=== PATIENT | male | born 1960 | race Caucasian/White ===

== ENCOUNTER 2018-05-12 14:24 | Emergency (ER) | payer OTHER ==
[2018-05-12 15:25] LABS: #Basophils 0.1 thou/uL (0.0-0.2); #Eosinphils 0.1 thou/uL (0.0-0.7); #Lymphocytes 2.4 thou/uL (1.20-3.40); #Monocytes 0.5 thou/uL (0.11-0.59); %Basophils 1.2 % (0.0-1.0); %Eosinophils 2.1 % (0.0-10.0); %Lymphocytes 39.3 % (21.0-51.0); %Monocytes 8.3 % (0.0-10.0); %Neutrophils 49.2 % (42.0-75.0); Hemoglobin 14.2 g/dL (14.0-18.0); Mean Corpuscular HGB CONC 34.1 g/dL (32.0-36.0); Mean Corpuscular Hemoglobin 29.9 pg (27.0-31.0); Mean Corpuscular Volume 87.5 fL (78.0-98.0); Mean Platelet Volume 7.5 fL (7.4-10.4); Platelet Count 213 thou/uL (130-400); RBC Distribution Width 11.1 % (11.5-14.5); Red Blood Cell (RBC) Count 4.76 mill/uL (4.70-6.10)
--- NOTE | 2018-05-12 15:28 | RAD ---
CHEST PA AND LATERAL TWO VIEWS: History: 57-year-old male with history of abnormal breath sounds, lightheadedness for one week. Comparison: 11-16-12 FINDINGS: Heart size is within normal limits. The lungs are clear. No pneumonia, edema, or pleural effusion. IMPRESSION: No acute intrathoracic disease. POS: [facility]
[2018-05-12 15:38] LABS: ALT (SGPT) 38 U/L (8-55); AST (SGOT) 31 U/L (5-34); Albumin 4.4 g/dL (3.5-5.0); Alkaline Phosphatase 55 U/L (40-150); Anion Gap 13 mmol/L (10-20); BUN (Urea Nitrogen) 22 mg/dL (8.4-25.7); Bilirubin, Total 0.5 mg/dL (0.2-1.2); Calc. Creatinine Clearance 0 mL/min (70-130); Calcium 9.8 mg/dL (7.8-10.44); Carbon Dioxide 27 mmol/L (22-29); Chloride 103 mmol/L (98-107); Estimated GFR-MDRD 86; Globulin 3.7 g/dL (2.4-3.5); Glucose 93 mg/dL (70-105); Potassium 4.2 mmol/L (3.5-5.1); Protein, Total 8.1 g/dL (6.0-8.3); Sodium 139 mmol/L (136-145)
[2018-05-12 15:40] LABS: CKMB 1.2 ng/mL (0-6.6); Troponin I Less than 0.010 ng/mL (< 0.028)
== END 2018-05-12 15:56 | disposition home or self-care (01) ==
LOC: SCSER 14:24
DX: R42 Dizziness and giddiness (principal)
CPT/HCPCS: 71046; 80053; 82553; 84484; 85025; 93005

== ENCOUNTER 2021-06-27 21:33 | Inpatient (IN) | payer OTHER ==
[2021-06-27] MEDS ORDERED: Bupivacaine PF 0.5% 30 ML VIAL ONE (22:01)
[2021-06-27] MEDS ORDERED: Neomycin-Polymyxin 1 ML AMP ONE ×2 (22:01→22:07)
[2021-06-27] MEDS ORDERED: Bacitracin Zinc Ointment 30 gm TUBE ONE (22:01)
[2021-06-27] MEDS ORDERED: Thrombin 5000 UNITS/5 ML VIAL ONE (22:07)
[2021-06-27] MEDS ORDERED: Betamet Acet/Betamet Na Ph 30 MG/5 ML VIAL ONE (22:08)
[2021-06-27] MEDS ORDERED: Milk Of Magnesia 30 ML UDCUP PO PRN (23:10)
[2021-06-27] MEDS ORDERED: Acetaminophen 325 MG TAB PO PRN (23:10)
[2021-06-27] MEDS ORDERED: Ondansetron PF 4 MG/2 ML Vial SLOW IVP PRN (23:10)
[2021-06-27] MEDS ORDERED: traMADol HCl 50 MG TAB PO PRN (23:10)
[2021-06-27] MEDS ORDERED: Fentanyl 100 MCG/2 ML VIAL SLOW IVP PRN (23:10)
[2021-06-27] MEDS ORDERED: Promethazine HCl 25 MG/ML VIAL IM PRN (23:10)
[2021-06-27] MEDS ORDERED: HYDROcodone/Acetaminophen 5/325 mg Tablet PO PRN (23:10)
[2021-06-27] MEDS ORDERED: Bisacodyl 10 MG SUPP PR PRN (23:10)
[2021-06-27] MEDS ORDERED: Morphine 4 MG/ML VIAL SLOW IVP PRN (23:10)
[2021-06-27] MEDS ORDERED: Communication Order-Pharmacy FS PRN (23:15)
[2021-06-27] MEDS ORDERED: TETANUS AND DIPHTHERIA TOX/PF 0.5 ML DISP.SYRIN IM SCH (23:15)
[2021-06-27] MEDS ORDERED: Meperidine HCl/PF 25 MG/ML VIAL IM PRN (23:15)
[2021-06-27] MEDS ORDERED: Morphine 4 MG/ML VIAL ONE (23:36)
[2021-06-27] MEDS ORDERED: Ondansetron PF 4 MG/2 ML Vial ONE (23:36)
[2021-06-28] MEDS ORDERED: Succinylcholine 200 MG/10 ml SYRINGE FS ONE (00:40)
[2021-06-28] MEDS ORDERED: Lidocaine 1% PF 5 ML VIAL ONE (00:40)
[2021-06-28] MEDS ORDERED: Dexamethasone 20 MG/5 ML VIAL ONE (00:40)
[2021-06-28] MEDS ORDERED: Ondansetron PF 4 MG/2 ML Vial ONE (00:40)
[2021-06-28] MEDS ORDERED: Ketorolac Tromethamine 30 MG/ML VIAL ONE (00:40)
[2021-06-28] MEDS ORDERED: PROPOFOL 200 MG/20 ML VIAL ONE (00:40)
[2021-06-28] MEDS ORDERED: Pen G 2.5 MILL.UNITS/50 ML BAG IVPB SCH (01:00)
[2021-06-28] MEDS ORDERED: Meperidine HCl/PF 25 MG/ML VIAL SLOW IVP PRN (02:16)
[2021-06-28] MEDS ORDERED: Ondansetron HCl/PF 4 MG/2 ML Vial IVP PRN (02:16)
[2021-06-28] MEDS ORDERED: HYDROmorphone 2 MG/ML VIAL SLOW IVP PRN (02:16)
[2021-06-28] MEDS ORDERED: Promethazine HCl 25 MG/ML VIAL IVPB PRN (02:16)
[2021-06-28] MEDS ORDERED: Promethazine HCl 25 MG/ML VIAL IM PRN (02:16)
[2021-06-28] MEDS ORDERED: Fentanyl 100 MCG/2 ML VIAL ONE (02:31)
[2021-06-28 03:15] VITALS: BMI 28.9
[2021-06-28] MEDS: Penicillin G Potassium 2.5 MILL.UNITS in Sodium Chloride 0.9% 50 ML IVPB SCH ×6 (03:42→20:38)
[2021-06-28] MEDS: Ketorolac Tromethamine 30 MG/ML VIAL IVP SCH ×5 (03:42→23:41)
[2021-06-28] MEDS: Sodium Chloride 0.9% 1,000 ML IV SCH ×3 (04:18→20:38)
[2021-06-28] MEDS: Gentamicin Sulfate 80 MG in Premix Bag 1 BAG IVPB SCH ×2 (04:19→23:41)
[2021-06-28] MEDS: Vancomycin 1.5 GRAM/300 ML BAG 1.5 GM in Premix Bag 1 BAG IVPB SCH ×2 (08:32→21:28)
[2021-06-28] MEDS: Aspirin 81 mg Enteric Coated Tablet PO SCH ×2 (08:33→20:38)
[2021-06-29] MEDS: Penicillin G Potassium 2.5 MILL.UNITS in Sodium Chloride 0.9% 50 ML IVPB SCH ×3 (00:30→10:08)
[2021-06-29 04:09] VITALS: BP 114/70; TEMP 98
[2021-06-29] MEDS: Sodium Chloride 0.9% 1,000 ML IV SCH (05:49)
[2021-06-29 07:05] LABS: Anion Gap 9 mmol/L (10-20); BUN (Urea Nitrogen) 18 mg/dL (8.4-25.7); Calc. Creatinine Clearance 131 mL/min (70-130); Calcium 8.2 mg/dL (7.8-10.44); Carbon Dioxide 24 mmol/L (22-29); Chloride 107 mmol/L (98-107); Glucose 119 mg/dL (70-105); Potassium 4.3 mmol/L (3.5-5.1); Sodium 136 mmol/L (136-145)
[2021-06-29] MEDS: Aspirin 81 mg Enteric Coated Tablet PO SCH (09:07)
[2021-06-29] MEDS: Vancomycin 1.5 GRAM/300 ML BAG 1.5 GM in Premix Bag 1 BAG IVPB SCH (10:41)
== END 2021-06-29 13:05 | disposition home or self-care (01) | DRG 513 ==
LOC: ERS 21:33 → SDC/OP 23:15 → SURG A 23:59
PROVIDERS: ADMIT Orthopaedic Surgery Hand Surgery; ATTEND Orthopaedic Surgery Hand Surgery
PROC: 0RBP0ZZ Excision of Left Wrist Joint, Open Approach (ICD-10-PCS; principal; 2021-06-28)
PROC: 01Q50ZZ Repair Median Nerve, Open Approach (ICD-10-PCS; 2021-06-28)
PROC: 0L880ZZ Division of Left Hand Tendon, Open Approach (ICD-10-PCS; 2021-06-28)
DX: S62.122 Displaced fracture of lunate [semilunar], left wrist (principal); S56.424A Laceration of extensor muscle, fascia and tendon of left middle finger at forearm level, initial encounter; Z20.822 Contact with and (suspected) exposure to COVID-19; S61.551A Open bite of right wrist, initial encounter; W54.0XXA Bitten by dog, initial encounter
CPT/HCPCS: 36415; 80048; 96374; 96375; G0390; J0702; J1100; J1580; J1885; J2270; J2405; J2540; J2704; J3010; J3370; J7050; S0020

== ENCOUNTER 2021-07-02 10:43 | Day surgery (SDC) | payer OTHER ==
[2021-07-02] MEDS ORDERED: ceFAZolin 2 GM/DEX 5% 100 ML BAG ONE (16:35)
[2021-07-02] MEDS ORDERED: Midazolam HCl 2 mg/2 ml Vial ONE (17:40)
[2021-07-02] MEDS ORDERED: Neomycin-Polymyxin 1 ML AMP ONE ×2 (18:33→18:52)
[2021-07-02] MEDS ORDERED: Bacitracin Zinc Ointment 30 gm TUBE ONE (18:34)
[2021-07-02] MEDS ORDERED: Bupivacaine PF 0.5% 30 ML VIAL ONE (18:34)
[2021-07-02] MEDS ORDERED: Fentanyl 100 MCG/2 ML VIAL ONE ×2 (19:14→21:18)
[2021-07-02] MEDS ORDERED: Ketorolac Tromethamine 30 MG/ML VIAL ONE (21:06)
[2021-07-02] MEDS ORDERED: HYDROcodone/Acetaminophen 5/325 mg Tablet ONE (21:40)
== END 2021-07-02 22:07 | disposition home or self-care (01) ==
LOC: SDC 10:43
PROVIDERS: ATTEND Orthopaedic Surgery Hand Surgery
PROC: 0RQP0ZZ Repair Left Wrist Joint, Open Approach (ICD-10-PCS; principal; 2021-07-02)
PROC: 0LQ60ZZ Repair Left Lower Arm and Wrist Tendon, Open Approach (ICD-10-PCS; principal; 2021-07-02)
DX: S61.552A Open bite of left wrist, initial encounter (principal); S66.323A Laceration of extensor muscle, fascia and tendon of left middle finger at wrist and hand level, initial encounter; W54.0XXA Bitten by dog, initial encounter
CPT/HCPCS: 76000; J1885; J2250; J3010; S0020